=== PATIENT | male | born 1995 | race Two or more races ===

== ENCOUNTER 2022-02-18 17:36 | Emergency (ER) | payer OTHER ==
[2022-02-18] MEDS ORDERED: IBUPROFEN 600 MG TABLET (FP) PO ONE (17:52)
[2022-02-18 17:53] VITALS: BP 122/74; PULSE 69; RESP 18; TEMP 98.2; BMI 24.7
[2022-02-18] MEDS ORDERED: CEPHALEXIN MONOHYDRATE 500 MG CAPSULE (UD) PO ONE (20:20)
[2022-02-18] MEDS ORDERED: DIPHTH,PERTUSS(ACELL),TET 0.5 ML DISP.SYRIN IM ONE ×2 (20:20→20:22)
[2022-02-18] MEDS ORDERED: CEPHALEXIN MONOHYDRATE 500 MG CAPSULE (UD) ONE (20:22)
== END 2022-02-18 20:33 | disposition home or self-care (01) ==
LOC: JERFT 17:36
PROC: 3E0234Z Introduction of Serum, Toxoid and Vaccine into Muscle, Percutaneous Approach (ICD-10-PCS; principal; 2022-02-18)
DX: S62.524B Nondisplaced fracture of distal phalanx of right thumb, initial encounter for open fracture (principal)
CPT/HCPCS: 73140-TC-RT-FY; 90471; 90715; 99284-25